=== PATIENT | female | born 1940 | race Caucasian/White ===

== ENCOUNTER 2021-01-31 14:39 | Emergency (ER) | payer MEDICARE ==
[~2021-01-31] VITALS: Ht 165.1 cm; Wt 113.6 kg
[~2021-01-31 14:39] MED LIST: ASPIRIN81 MG PO; CARBIDOPA-LEVO1 EAC4 PO; CENTRUM COMPLE1 EACH PO; COREG12.5 MG PO; ELIQUIS5 MG PO; FISH OIL 1,2001 CAP PO; HYDROCODON-ACE1 EA10 PO; LANTUS INSULIN10 ML SC; LASIX20 MG PO; LEVEMIR FL100 UNIT/1 SC; NEURONTIN 300300 MG PO; NOVALOG INSULIN; PLAVIX75 MG PO; PRINIVIL20 MG PO; PROZAC40 MG PO; ROPINIROLE HCL1 MG PO; ULTRAM50 MG PO; VALIUM 2 MG TAB2 MG PO; VALIUM5 MG PO; VITAMIN D50000 UNI1 PO; ZANAFLEX4 MG PO; ZOCOR40 MG PO
[2021-01-31 14:44] VITALS: Ht 165.1 cm; Wt 113.6 kg
[2021-01-31 15:26] LABS: BASOPHILS 0.8 % (0-2); EOSINOPHILS 0.6 % (0-7); HEMATOCRIT 31.4 % (36.0-48.0); HEMOGLOBIN 9.8 g/dL (12-16); LYMPHOCYTES 13.2 % (15-50); MCH 23.5 pg (26.0-34.0); MCHC 31.3 g/dL (31.0-37.0); MEAN PLATELET VOLUME 8.3 fL (7.4-10.4); MONOCYTES 5.2 % (2-11); NEUTROPHILS 80.2 % (40-80); RBC 4.19 10x6/uL (4.00-5.40); RDW 17.2 % (11.5-14.5); WBC 9.2 10x3/uL (4.8-10.8)
[2021-01-31 15:30] LABS: PLATELET COUNT 263 10x3/uL (130-400)
[2021-01-31 15:42] LABS: CALC OSMOLALITY 280 mosm/kg (275-300); CALCIUM 8.8 mg/dL (8.5-10.1); CARBON DIOXIDE 27.8 mmol/L (21.0-32.0); CHLORIDE - SERUM 101 mmol/L (98-107); CREATININE - SERUM 0.9 mg/dL (0.6-1.3); GLUCOSE 244 mg/dL (74-106); POTASSIUM - SERUM 3.9 mmol/L (3.5-5.1); SODIUM 135 mmol/L (136-145); UREA NITROGEN 21 mg/dL (7-18); eGFR NON AFRICAN AMERICAN 64 mL/min (90-120)
[2021-01-31 15:49] LABS: BILIRUBIN NEGATIVE (NEGATIVE); KETONE NEGATIVE (NEGATIVE); NITRITE NEGATIVE (NEGATIVE); UROBILINOGEN NORMAL mg/dL (< 2)
[2021-01-31 15:51] LABS: ALBUMIN 3.6 g/dL (3.4-5.0); ALKALINE PHOSPHATASE 75 U/L (30-120); ALT (SGPT) 30 U/L (10-68); PROTEIN - SERUM 6.9 g/dL (6.4-8.2); SQUAMOUS EPITHELIAL 0-5 HPF (0-4); TROPONIN-I < 0.017 ng/mL (0.000-0.060); WHITE CELLS - URINE 0-5 HPF (0-4)
[2021-01-31 16:08] VITALS: BP 152/123
== END 2021-01-31 18:14 | disposition home or self-care (01) ==
LOC: D.ER 14:39
PROVIDERS: Emergency Medicine
DX: I11.0 Hypertensive heart disease with heart failure (principal); I50.9 Heart failure, unspecified; R06.02 Shortness of breath; E11.40 Type 2 diabetes mellitus with diabetic neuropathy, unspecified; E78.5 Hyperlipidemia, unspecified; J44.9 Chronic obstructive pulmonary disease, unspecified; K21.9 Gastro-esophageal reflux disease without esophagitis; Z79.4 Long term (current) use of insulin